=== PATIENT | female | born 1930 | race Caucasian/White ===

== ENCOUNTER 2017-03-21 09:23 | Inpatient (IN) | payer MEDICARE, BC ==
[~2017-03-21] VITALS: Ht 157.5 cm; Wt 69.5 kg
[~2017-03-21 09:23] MED LIST: BABY ASPIRIN81 MG PO; BUMEX2 MG PO; CALTRATE 600 M600 M1 PO; CORDARONE200 MG PO; COUMADIN7.5 MG PO; COZAAR50 MG PO; ELIQUIS2.5 MG PO; HYDROCHLOROTH12.5 M1 PO; KLOR-CON 1010 MEQ PO; KLOR-CON M2020 MEQ PO; KLOR-CON20 MEQ/PKT PO; LASIX40 MG PO; LEVAQUIN500 MG PO; LEVOTHROID75 MCG PO; LIPITOR40 MG PO; LOPRESSOR25 MG PO; MICRO-K10 MEQ PO; MOBIC7.5 MG PO; PROTONIX40 MG PO; RELAFEN500 MG PO; RESTORIL15 MG PO; SYNTHROID100 MCG PO; TIROSINT13 MCG; VITAMIN D2000 UNIT PO
[2017-03-21 10:06] LABS: BASOPHILS 0.2 % (0-2); HEMATOCRIT 38.6 % (36.0-48.0); IMMATURE GRANULOCYTES 0.4 % (0-5); LYMPHOCYTES 9.6 % (15-50); MCH 34.1 pg (26.0-34.0); MCHC 33.7 g/dL (31.0-37.0); MCV 101.3 fL (80.0-100.0); MEAN PLATELET VOLUME 9.4 fL (7.4-10.4); NEUTROPHILS 78.8 % (40-80); PLATELET COUNT 262 10x3/uL (130-400); RBC 3.81 10x6/uL (4.00-5.40); RDW 12.8 % (11.5-14.5); WBC 15.5 10x3/uL (4.8-10.8)
[2017-03-21 10:08] LABS: INR 0.98 (0.85-1.17); PROTIME 12.9 SECONDS (11.6-15.0)
--- NOTE | 2017-03-21 10:10 | NUR ---
RECIEVED PT TO THE FLOOR AT THIS TIME. ORIENTED TO ROOM AND FLOOR. ASSESSMENT DONE PER FLOWSHEET. 20G IV STARTED TO THE RIGHT FOREARM BY DAISY REYES RN AT THIS TIME. BED IN LOW POSITION AND CALL LIGHT WITHIN REACH. WILL CONTINUE TO MONITOR.
[2017-03-21 10:18] LABS: ALBUMIN 3.6 g/dL (3.4-5.0); ANION GAP 12.7 mmol/L (8-16); CREATININE - SERUM 1.2 mg/dL (0.6-1.3); POTASSIUM - SERUM 3.7 mmol/L (3.5-5.1); PROTEIN - SERUM 7.3 g/dL (6.4-8.2); T4 THYROXINE 16.6 ug/dL (4.7-13.3); THYROID STIMULATING HORMONE 1.76 uIU/mL (0.36-3.74)
[2017-03-21 13:30] VITALS: BP 125/69
[2017-03-21 14:29] VITALS: BP 125/69; BMI 27.8
[2017-03-21 17:05] VITALS: BP 93/63
[2017-03-21 17:34] LABS: HEMOGLOBIN 11.5 g/dL (12-16)
[2017-03-21 20:00] VITALS: BP 126/72
--- NOTE | 2017-03-21 20:10 | NUR ---
PATIENT RESTING IN BED AND DENIES NEEDS AT THIS TIME. BED IN LOWEST POSITION AND CALL LIGHT WITHIN REACH. ENCOURAGED THE PATIENT TO CALL IF SHE HAS NEEDS.
[2017-03-21 23:09] LABS: HEMATOCRIT 34.1 % (36.0-48.0); HEMOGLOBIN 11.1 g/dL (12-16)
[2017-03-22] VITALS (8 sets, daily range): BP systolic 96–165; BP diastolic 43–80; Ht 157.5 cm; Wt 69.5 kg
[2017-03-22 04:34] LABS: BASOPHILS 0.2 % (0-2); EOSINOPHILS 2.2 % (0-7); HEMATOCRIT 33.9 % (36.0-48.0); HEMOGLOBIN 11.5 g/dL (12-16); IMMATURE GRANULOCYTES 0.3 % (0-5); LYMPHOCYTES 11.5 % (15-50); MCH 34.2 pg (26.0-34.0); MCHC 33.9 g/dL (31.0-37.0); MCV 100.9 fL (80.0-100.0); MEAN PLATELET VOLUME 9.5 fL (7.4-10.4); MONOCYTES 13.7 % (2-11); NEUTROPHILS 72.1 % (40-80); RBC 3.36 10x6/uL (4.00-5.40); RDW 12.8 % (11.5-14.5)
[2017-03-22 04:37] LABS: PLATELET COUNT 203 10x3/uL (130-400); WBC 11.3 10x3/uL (4.8-10.8)
[2017-03-22 04:41] LABS: ANION GAP 11.3 mmol/L (8-16); CALCIUM 8.5 mg/dL (8.5-10.1); CARBON DIOXIDE 28.1 mmol/L (21.0-32.0); CREATININE - SERUM 0.9 mg/dL (0.6-1.3); POTASSIUM - SERUM 3.4 mmol/L (3.5-5.1)
--- NOTE | 2017-03-22 06:37 | HP ---
PATIENT: NIURKA SHEIKH MEDICAL RECORD: [id number] ACCOUNT: [id number] LOCATION:D.MS Lou8 : [birth year] ADMISSION DATE: 03/21/17 HISTORY AND PHYSICAL EXAMINATION DATE OF ADMISSION: 03/21/2017 CHIEF COMPLAINT: Spitting up blood. HISTORY OF PRESENT ILLNESS: The patient is an 86-year-old female, who states she awakened this morning at approximately 5:30, she has had coughing and she has had some blood. She reports smoking, no chills and no sweats. The patient presents for evaluation. PAST MEDICAL HISTORY: Significant that she has had history of having hypothyroidism. She has had coronary artery bypass grafting. She has had hyperlipidemia, gastroesophageal reflux and dependent edema. She had coronary artery bypass grafting in 2013. She had a cholecystectomy in 2009. She had a hysterectomy in 1980, history of arthritis. MEDICATIONS: Include amiodarone 200 mg half tablet daily, aspirin 81 mg once a day, atorvastatin 40 mg once a day, calcium 600 mg p.o. b.i.d., Lasix 40 mg p.o. q.a.m., levothyroxine 100 mcg once a day, losartan 50 mg once a day, nabumetone 500 mg 2 tablets once a day, Protonix 40 mg once a day, KCl 10 mEq p.o. daily and vitamin D3 of 1000 international units once a day. ALLERGIES: FLEXERIL. She is a , AB2. FAMILY HISTORY: Father of cirrhosis of liver. Mother of natural causes. SOCIAL HISTORY: Habits: The patient is a never smoker. She is educated to the 10th grade. She is . REVIEW OF SYSTEMS: CONSTITUTIONAL: She denies any headaches, seizure, or syncope. She denied change in visual or auditory acuity. PULMONARY: She denies any shortness of breath, cough, congestion, history of TB, asthma, or bronchitis. CARDIOVASCULAR: No chest pain, palpitation, PND, or orthopnea. GASTROINTESTINAL: No chronic nausea, vomiting, melena, or hematochezia. GENITOURINARY: No urgency, frequency, or dysuria. PHYSICAL EXAMINATION: GENERAL: She is a well-nourished and well-developed female, who is in no acute distress at present time. Alert and oriented times 3. VITAL SIGNS: Her blood pressure 146/86, her respirations 24, pulse 60, O2 sat is 92% on room air. HEENT: Head is normocephalic. No lesions. TMs clear. Eyes: Pupils are equal, round and reactive to light. Extraocular movements are intact. Nasal cavity, oral cavity and oropharynx clear. NECK: Supple. There is no adenopathy. HEART: Has a regular rate without any murmurs, gallops or rubs. HISTORY AND PHYSICAL [id number] AGUILAR,NIURKA LUNGS: Clear. ABDOMEN: Soft, bowel sounds positive. She does have an epigastric tenderness present. EXTREMITIES: Lower extremities have no edema. DIAGNOSTIC DATA: The patient had a chest x-ray showing no cardiomegaly, no active infiltrates. She has had a prior medial sternotomy. She does have some nonspecific ST wave changes with a pulse of 78 on EKG. LABORATORY DATA: The patient's white count is 12.9, hemoglobin 12.3, hematocrit was 39 and her platelet count was 292. ASSESSMENT: Acute hemoptysis, history of arteriosclerotic heart disease, hyperlipidemia, hypothyroidism and history of congestive failure. PLAN: The patient will be admitted. Serial H&H will be performed. She will be placed on Protonix 80 mg per hour IV. Gastroenterology consultation will be obtained for EGD. She will have her H&Hs checked q.6 hours and transfuse as needed. TRANSINT:[id number] Voice Confirmation ID: [id number] DOCUMENT ID: [id number] SANTA CHANDRA MD at 0637 CC: [id number] DICTATION DATE: 03/21/17 1019 SUPERVISOR ELECTROLYTIC TINNING: 03/21/17 1128 ADM IN [place] [id number] [place] [id number]
--- NOTE | 2017-03-22 07:30 | NUR ---
RECIEVED PT DURING WALKING ROUNDS, PT RESTING IN BED WITH COMPLAINTS OF A HEADACHE, RECIEVED ORDERS FROM DR AT THIS TIME. ASSESSMENT DONE PER FLOWSHEET, BED IN LOW POSITION AND CALL LIGHT WITHIN REACH. WILL CONTINUE TO MONITOR.
[2017-03-22 10:38] LABS: HEMATOCRIT 35.5 % (36.0-48.0); HEMOGLOBIN 11.8 g/dL (12-16)
--- NOTE | 2017-03-22 15:05 | NUR ---
PT COMPLAINS OF HEADACHE WELL CHEST AND BACK PAIN, ASKED PT TO DESCRIBE CHEST PAIN AND SHE STATED IT WAS ACHING. PHONE CALL PLACED TO TO 'S, RECIEVED ORDERS FOR DILAUDID 0.5MG IV AND A EKG. WAS INFORMED TO CALL FOR ANY OTHER PROBLEMS. WILL CONTINUE TO MONITOR.
--- NOTE | 2017-03-22 15:15 | NUR ---
PT O2 SAT AT THIS TIME 89% ON ROOM AIR, PT PLACED ON 2L NC, PT BREATHING SLIGHTLY LABORED, ELEVATED HOB AND INSTRUCTED PT TO TAKE DEEP BREATHS. CALL PLACED TO DR. SHEETS'S AND RECIEVED ORDERS FOR A STAT CHEST X-RAY. PT IN BED WITH FAMILY AT BEDSIDE. BED IN LOW POSITION AND CALL LIGHT WITHIN REACH. WILL CONTINUE TO MONITOR.
[2017-03-22 16:08] LABS: HEMATOCRIT 35.3 % (36.0-48.0); HEMOGLOBIN 11.5 g/dL (12-16)
--- NOTE | 2017-03-22 20:06 | NUR ---
IV SITED TO LEFT AC X2 STICKS USING ASEPTIC TECH. 20G
--- NOTE | 2017-03-22 21:30 | NUR ---
PT RECEIVED FROM FLOOR. WAS ADMITTED TUESDAY WITH CHEST PAIN. PT WAS SENT FOR EMERGENT CTA, AND IT WAS INITIALLY READ A DISSECTING AORTIC ANEURISM. PT WAS SENT TO CVICU, AND DR FU WAS CONSULTED FOR POSSIBLE NEED OF EMERGENT SURGICAL THERAPY. DR FU FOUND THAT THE ANEURISM WAS NOT DISSECTING, AND THAT THE PATIENT WOULD NOT BE A CANDIDATE FOR SURGERY GIVEN HER AGE AND PAST CARDIOVASCULAR HX. ORDERS RECEIVED FROM DR FU TO MAINTAIN SYSTOLIC PRESSURE BELOW 120. CLEVIPREX ORDER RECEIVED TOT TITRATE WHEN NEEDED. WILL MONITOR PRESSURES THROUGHOUT SHIFT. PT AND PT FAMILY DISCUSSED CODE STATUS WTH DR FU, AND ALL CAME TO AGREEMENT ON DNR STATUS. LIVING WILL ALSO PROVIDED BY FAMILY AND IS IN THE CHART. UPON ARRIVAL TO THE UNIT, PT WAS PLACED ON 5L NC. SAT 96% PT HAD FACIAL CYANOSIS AT THIS TIME AND IT WAS NOTED BY DR FU. ALL PULSES PRESENT AND PALPABLE AT THIS TIME. NO ADVENTITIOUS SOUNDS PRESENT UPON AUSCULTATION. WILL MONITOR PATIENT FOR CHANGES, AND ADJUST CARE ACCORDINGLY.
--- NOTE | 2017-03-22 21:30 | NUR ---
PT RECEIVED FROM FLOOR. WAS ADMITTED ON TUESDAY WITH CHEST PAIN. PT WAS SENT FOR EMERGENT CTA, AND IT WAS INITIALLY READ A DISSECTING AORTIC ANEURISM. PT WAS SENT TO CVICU, AND DR FU WAS CONSULTED FOR POSSIBLE NEED OF EMERGENT SURGICAL THERAPY. DR FU FOUND THAT THE ANEURISM WAS NOT DISSECTING, AND THAT THE PATIENT WOULD NOT BE A CANDIDATE FOR SURGERY GIVEN HER AGE AND PAST CARDIOVASCULAR HX. ORDERS RECEIVED FROM DR FU TO MAINTAIN SYSTOLIC PRESSURE BELOW 120. CLEVIPREX ORDER RECEIVED TO TITRATE WHEN NEEDED. WILL MONITOR PRESSURES THROUGHOUT SHIFT. PT AND PT FAMILY DISCUSSED CODE STATUS WITH DR FU AND ALL CAME TO AGREEMENT ON DNR STATUS. LIVING WILL ALSO PROVIDED BY FAMILY AND IS IN THE CHART. UPON ARRIVAL TO THE UNIT, PT WAS PLACED ON 2L NC. SAT 96%. PT HAD FACIAL CYNOSIS AT THIS TIME, AND IT WAS NOTED BY DR FU. ALL PULSES PRESENT AND PALPABLE. NO ADVENTITIOUS SOUNDS PRESENT UPON ASCULTATION. WILL MONITOR PATIENT FOR CHANGES AND ADJUST CARE ACCORDINGLY.
[2017-03-22 22:14] LABS: HEMATOCRIT 35.3 % (36.0-48.0); HEMOGLOBIN 11.8 g/dL (12-16)
[2017-03-22 22:26] LABS: INR 1.06 (0.85-1.17); PROTIME 13.7 SECONDS (11.6-15.0)
[2017-03-22 22:42] LABS: D-DIMER-QUANTITATIVE 4.33 ug/mLFEU (0.20-0.54)
--- NOTE | 2017-03-22 23:00 | NUR ---
REASSESSMENT COMPLETED. SEE FLOWSHEET FOR FULL DETAILS. NO OTHER CHANGES IN PATIENT STATUS AT THIS TIME. PT B/P HAS REMAINED WITHIN SET PARAMETERS WITHOUT NEED FOR MEDICINAL INTERVENTION. PT NO LONGER HAS FACIAL CYANOSIS VISIBLE AT THIS TIME. WILL CONTINUE TO MONITOR.
[2017-03-23] VITALS (28 sets, daily range): BP systolic 94–128; BP diastolic 34–69
--- NOTE | 2017-03-23 01:00 | NUR ---
PT B/P READS EVERY 15 MINS, ONE MEASUREMENT READ 126 SYSTOLIC AT THE END OF THE 2300 HOUR. CLEVIPREX PREPARED, AND SCANNED AND HUNG. B/P RETAKEN AND IT HAD GONE BACK WITHIN PARAMETERS. WILL CONTINUE TO MONITOR CLOSELEY AND MAKE ADJUSTMENTS.
--- NOTE | 2017-03-23 02:58 | NUR ---
PT HAD ONE SMALL URINATION OF 50 ML. B/P STILL WITHIN PARAMETERS. PT DISPLAYS NO SHORTNESS OF BREATH OR CYANOSIS AT THIS TIME. WILL CONTINUE TO MONITOR.
[2017-03-23 03:47] LABS: BASOPHILS 0.1 % (0-2); EOSINOPHILS 0 % (0-7); HEMATOCRIT 35.5 % (36.0-48.0); HEMOGLOBIN 11.6 g/dL (12-16); IMMATURE GRANULOCYTES 0.4 % (0-5); MCH 33.6 pg (26.0-34.0); MCHC 32.7 g/dL (31.0-37.0); MEAN PLATELET VOLUME 9.4 fL (7.4-10.4); MONOCYTES 10.9 % (2-11); NEUTROPHILS 79.6 % (40-80); PLATELET COUNT 173 10x3/uL (130-400); RBC 3.45 10x6/uL (4.00-5.40); RDW 13.1 % (11.5-14.5)
[2017-03-23 03:48] LABS: MCV 102.9 fL (80.0-100.0); WBC 18.9 10x3/uL (4.8-10.8)
[2017-03-23 03:57] LABS: APTT 26.6 SECONDS (22.8-39.4); INR 1.16 (0.85-1.17); PROTIME 14.7 SECONDS (11.6-15.0)
[2017-03-23 04:02] LABS: ANION GAP 12.8 mmol/L (8-16); BILIRUBIN - TOTAL 0.89 mg/dL (0.2-1.3); CALCIUM 8.4 mg/dL (8.5-10.1); CARBON DIOXIDE 24.8 mmol/L (21.0-32.0); CREATININE - SERUM 1.3 mg/dL (0.6-1.3); MAGNESIUM - SERUM 1.7 mg/dL (1.8-2.4); PHOSPHOROUS 4.9 mg/dL (2.5-4.9); POTASSIUM - SERUM 3.6 mmol/L (3.5-5.1); PROTEIN - SERUM 6.9 g/dL (6.4-8.2)
--- NOTE | 2017-03-23 05:12 | NUR ---
PT C/O DISCOMFORT FROM BEDREST AT THIS TIME. PT HAS BEEN REPOSITIONED REGULARLY, AND HEAT PROVIDED. SHE STATES HER DISCOMFORT WILL GET BETTER WITH MOVEMENT. PASSIVE ROM PROVIDED AT THIS TIME. NO OTHER CHANGES IN STATUS AT THIS TIME. WILL COTNINUE TO MONITOR
--- NOTE | 2017-03-23 07:15 | NUR ---
REPORT RECIEVED FROM PERSONNEL RECRUITER NURSE. PT RESTING IN BED QUIETLY. NO S/SX OF ACUTE DISTRESS NOTED. FULL ASSESSMENT COMPLETE PER FLOWSHEET. REFER FOR DETAILS. CALL LIGHT IN REACH. BED IN LOW POSITION. WILL CONT TO ASSESS FOR CHANGES.
--- NOTE | 2017-03-23 09:30 | NUR ---
MAGNUS RN CALLED REGARDING PT'S CURRENT NPO STATUS. SHE STATED THEY DID NOT HAVE ANYTHING ORDERED OR PLANNED FOR PT TO REMAIN NPO. WILL CALL PCP AND DR. COWAN.
--- NOTE | 2017-03-23 09:45 | NUR ---
DR. CHANDRA PAGED. AWAITING CALL BACK.
--- NOTE | 2017-03-23 10:30 | NUR ---
SPOKE WITH DR. CHANDRA NURSE. STATED IT WAS OKAY FOR PT TO EAT A REGULAR DIET AND GET UP OOB TO CHAIR, BUT NO EXTRANEOUS ACTIVITY.
--- NOTE | 2017-03-23 11:00 | NUR ---
REASSESSMENT COMPLETE PER FLOWSHEET. NO CHANGES NOTED.
--- NOTE | 2017-03-23 15:00 | NUR ---
FAMILY AT BEDSIDE. UPDATE PROVIDED.
--- NOTE | 2017-03-23 18:00 | NUR ---
ASSISTED TO BSC. LARGE LIQUID BM NOTED.
--- NOTE | 2017-03-23 19:40 | NUR ---
REPORT REC'D AND CARE ASSUMED, REC'D PT SITTING UP IN RECLINER ON O2 @ 3LITERS, DAUGHTER AT BS, PT AWAKE, ALERT, AND ORIENTED, RIGHT HAND PIV WITH PROTONIX INFUSING @ 10CC/HR AND LEFT A/C PIV WITH NS @ 30CC/HR, CLEVIPREX ON HOLD, CM-SR, PT REQUESTING TO GET BACK IN BED, ASSISTED X 1 TO BED, REPOSITIONED UP IN BED FOR COMFORT, SCDS APPLIED TO LOWER EXT'S, PPP, BED IN LOW POSITION, SR UP X 2, CALL LIGHT IN REACH.
--- NOTE | 2017-03-23 21:15 | NUR ---
FAMILY @ BS VISITING WITH PT, QUESTIONS ANSWERED, AND UPDATE PROVIDED
--- NOTE | 2017-03-23 21:30 | NUR ---
EVENING MEDS GIVEN WITH SIPS OF WATER, PT DENIES PAIN OR OTHER NEEDS, WILL MONITOR FOR CHANGES.
--- NOTE | 2017-03-23 23:00 | NUR ---
REASSESSSMENT COMPLETED, PT RESTING ON LEFT SIDE EYES CLOSED, RESP SHALLOW BUT UNLABORED, VSS, WILL CONT TO MONITOR FOR CHANGES.
[2017-03-24] VITALS (25 sets, daily range): BP systolic 87–123; BP diastolic 45–67
--- NOTE | 2017-03-24 00:07 | NUR ---
PT DOWN IN BED ATTEMPTING TO REMOVE EXCESS COVERS DUE TO BEING HOT, PT REPOSITIONED UP IN BED, BLANKETS REMOVED FOR COMFORT, BP 83/56, WILL MONITOR CLOSELY FOR CHANGES.
--- NOTE | 2017-03-24 02:25 | NUR ---
PT REQUESTING BEDPAN TO VOID, PLACED ON BEDPAN CALL LIGHT IN REACH.
--- NOTE | 2017-03-24 02:35 | NUR ---
BEDPAN REMOVED AND PT CLEANED, 250CC NORMA COLORED URINE NOTED, PT REPOSITIONED FOR COMFORT, NO FURTHER NEEDS VOICED.
--- NOTE | 2017-03-24 03:15 | NUR ---
LAB AT FOR AM BLOOD DRAW
[2017-03-24 04:30] LABS: ANION GAP 17.2 mmol/L (8-16); CALCIUM 8.3 mg/dL (8.5-10.1); CREATININE - SERUM 1.5 mg/dL (0.6-1.3)
[2017-03-24 04:37] LABS: BASOPHILS 0.1 % (0-2); EOSINOPHILS 0.9 % (0-7); HEMATOCRIT 31.3 % (36.0-48.0); HEMOGLOBIN 10.4 g/dL (12-16); IMMATURE GRANULOCYTES 0.3 % (0-5); LYMPHOCYTES 7.6 % (15-50); MCH 33.5 pg (26.0-34.0); MCHC 33.2 g/dL (31.0-37.0); MEAN PLATELET VOLUME 9.9 fL (7.4-10.4); MONOCYTES 13.3 % (2-11); NEUTROPHILS 77.8 % (40-80); PLATELET COUNT 133 10x3/uL (130-400); RDW 13.1 % (11.5-14.5); WBC 14.8 10x3/uL (4.8-10.8)
[2017-03-24 04:39] LABS: POTASSIUM - SERUM 4.2 mmol/L (3.5-5.1)
--- NOTE | 2017-03-24 07:15 | NUR ---
REPORT RECIEVED FROM BINDERY LIBRARY TECHNICAL ASSISTANT NURSE. PT RESTING QUEITLY. NO S/SX OF ACUTE DISTRESS NOTED AT THIS TIME. SHIFT ASSESSMENT COMPLETE PER FLOWSHEET. CALL LIGHT IN REACH. BED IN LOW POSITION. WILL CONT TO ASSESS FOR CHANGES.
--- NOTE | 2017-03-24 09:30 | NUR ---
PT REMAINS IN CHAIR POST BREAKFAST. RESTING IN RECLINER QUIETLY. NO S/SX OF ACUTE DISTRESS NOTED. DENIES NEEDS AT THIS TIME. WILL CONT TO ASSESS.
--- NOTE | 2017-03-24 10:29 | NUR ---
Nutrition Follow Up: Pt was asleep at the time of RD visit. Pt interview deferred at this time. Pt is on a regular diet. Wt gain since admit noted. +BM 03/23/17. Labs reviewed - Glucose elevated. Meds noted including D5NS @ 85 ml/hr, Lasix. Rec continue current diet. Will continue to provide selective menus and honor food preferences. RD following.
--- NOTE | 2017-03-24 10:50 | NUR ---
* Is the patient Alert and Oriented? Yes 0 * How many steps to enter\exit or inside your home? 3 0 * PCP Dr. Soriano 0 * Pharmacy [facility] 0 * Preadmission Environment Home Alone 0 * ADLs Independent 0 * List name and contact numbers for known caregivers / representatives who currently or will assist patient after discharge: Daughter - Ashvin Simmons [phone] Daughter in - Jaki Contreras [phone] 0 * Additional services required to return to the preadmission environment? No 0 * Can the patient safely return to the preadmission environment? Yes 0 * Has this patient been hospitalized within the prior 30 days at any hospital? No Patient Name: NIURKA CONTRERAS Admission Status: Elective Accout number: [id number] Admission Date: 03-21-2017 : 1928 Admission Diagnosis:HEMOPTYSIS Attending: ISSAC Current LOS: 3 Anticipated DC Date: 03-25-2017 Planned Disposition: Home Primary Insurance: MEDICARE A & B Discharge Planning Comments: CM met with patient to assess dc plans/needs. Patient states she lives alone & is independent with all ADL's. She states her she lives next door to her son. She denies using any DME or having home health services. At dc, she will return home. She states her family will assist with any needs. Anticipate DC next 1-2 days. CM will follow. Band Reamer Machine Operator: Norah Randall
--- NOTE | 2017-03-24 11:00 | NUR ---
NO CHANGES NOTED AT THIS TIME. VSS. WILL CONT TO ASSESS.
--- NOTE | 2017-03-24 13:00 | NUR ---
ASSISTED BACK TO RECLINER WITH MOD ASSIST. FRESH ICE WATER PLACED IN REACH. WILL CONT TO ASSESS.
--- NOTE | 2017-03-24 15:00 | NUR ---
DAUGHTER AT BEDSIDE. UPDATE PROVIDED.
--- NOTE | 2017-03-24 17:00 | NUR ---
DINNER PLACED ON BST. DENIES NEEDS AT THIS TIME. WILL CONT TO ASSESS.
--- NOTE | 2017-03-24 18:30 | NUR ---
ASSISTED BACK TO BED. CALL LIGHT PLACED IN REACH. SHADE PULLED OVER WINDOW PER REQUEST. WILL CONT TO ASSESS.
--- NOTE | 2017-03-24 19:30 | NUR ---
REC'D PT RESTING IN BED, AWAKE, ALERT, ORIENTED X 4, O2 @ 3LITERS VIA NC, RIGHT HAND PIV WITH PROTONIX @ 10 CC/HR, LEFT A/C PIV WITH BRUISING NOTED NS @ 30CC/HR, PT DENIES TENDERNESS AT SITE, MAEE, PPP, SCDS OFF AT THIS TIME FOR COMPLAINTS OF BEING HOT, PT DENIES FURTHER NEEDS, SR UP X 2 , BED IN LOW POSITION.
--- NOTE | 2017-03-24 20:30 | NUR ---
PT ASSISTED UP TO BATHROOM X 1 ASSIST, VOIDED APPROXIMATELY 200CC CONCENTRATED URINE, BACK TO BED, LEFT A/C PIV BLEEDING AT INSERTION SITE, NS STOPPED, LEFT A/C EDEMATOUS, PIV DC'D WITH CATH TIP INTACT, PROTONIX CONTINUES TO INFUSE VIA RIGHT HAND, PT REPOSITIONED UP IN BED, BLANKET PROVIDED FOR COMPLAINTS OF BEING COLD, PT DENIES FURTHER NEEDS.
--- NOTE | 2017-03-24 20:40 | NUR ---
EVENING MEDS GIVEN ORDERED.
--- NOTE | 2017-03-24 21:15 | NUR ---
DAUGHTER AT BS UPDATE GIVEN AND QUESTIONS ANSWERED.
--- NOTE | 2017-03-24 21:40 | NUR ---
PT COMPLAINS OF BACK PAIN MIDBACK FROM ARTHRITIS, DAUGHTER REMAINS AT BS, 0.5MG DILAUDID GIVEN SLOW IVP, BP STABLE, WILL CONT TO MONITOR FOR CHANGES.
--- NOTE | 2017-03-24 23:00 | NUR ---
REASSESSMENT COMPLETED, PT STATES "IS IT STORMING?" I WAS SLEEPING GOOD AND HEARD A NOISE, EXPLAINED TO PT IT WAS NOT STORMING AT THIS TIME, PT REQUESTING BEDPAN, BEDPAN PLACED UNDER PT.
--- NOTE | 2017-03-24 23:05 | NUR ---
PT REMOVED FROM BEDPAN AND PERICARE PROVIDED, PT VOIDED 150 CC CONCENTRATED URINE, REPOSITIONED UP IN BED FOR COMFORT, PT DENIES FURTHER NEEDS, SR UP X 2, CALL LIGHT IN REACH.
[2017-03-25] VITALS (14 sets, daily range): BP systolic 87–120; BP diastolic 43–76
--- NOTE | 2017-03-25 01:15 | NUR ---
REPORT GIVEN TO MARY ALICE SEN RN
--- NOTE | 2017-03-25 01:22 | NUR ---
REPORT RECIEVED PT APPEARS TO BE SLEEP. DENIES ANY NEEDS WILL CONTINUE TO MONITOR.
--- NOTE | 2017-03-25 02:34 | NUR ---
PT STATES SHE NEEDED TO GO TO THE BATHROOM. ASSISTED TO THE BED [place] VOIDED 75CC OF URINE. POSITIONED PT FOR COMFORT WILL CONTINUE TO MONITOR.
--- NOTE | 2017-03-25 04:16 | NUR ---
PT REQUESTED TO GET IN THE CHAIR. ASSISTED TO THE CHAIR WITH NO PROBLEMS. CALL LIGHT IN REACH.
--- NOTE | 2017-03-25 08:48 | OP ---
PATIENT NAME: NIURKA SHEIKH MEDICAL RECORD: [id number] :[birth year] LOCATION:[facility] D.CV02 ADMISSION DATE:03/21/17 SURGEON: BÁRBARA TANG DO DATE OF OPERATION: 03/22/2017 PROCEDURE: EGD. INDICATIONS: Possible GI bleed. SCOPE: Olympus video gastroscope. MEDICATIONS: Propofol 60 mg IV per anesthesia. ESTIMATED BLOOD LOSS: None. COMPLICATIONS: None. FINDINGS: Informed consent was given. The patient was made comfortable with the above medication. After reaching an adequate level of sedation by slow IV push, the patient was placed on her left side. The endoscope was then advanced under direct visualization through the mouth to the second portion of the duodenum. In the hypopharynx, there was some old bright red blood noted and streak of blood that appeared to be coming from the airway. The endoscope passed the hypopharynx and dominated the esophagus. The upper, middle, and lower thirds of the esophagus appeared normal as did the GE junction. The endoscope was advanced beyond the GE junction into the stomach and retroflexed to view the cardia, where a small sliding hiatal hernia was present. The entire stomach appeared normal without erosions, ulcerations, or other abnormalities. The endoscope was advanced beyond the pylorus into the duodenum where the bulb and second portion of the duodenum appeared normal. Scope was then withdrawn from the patient. The patient tolerated the procedure well and there were no complications. There were no sources of bleeding visualized on this examination within the digestive tract and there was no old blood noted within the digestive tract. The only bit of blood that was encountered was involving the airway. IMPRESSION: 1. Hiatal hernia, otherwise normal upper endoscopy. 2. Small amount of blood visualized in hypopharynx. PLAN AND RECOMMENDATIONS: 1. Return to floor for continued monitoring and further workup. 2. Consider pulmonology consultation and further imaging to evaluate the lungs and airway. 3. GI is available as needed for further evaluation. TRANSINT:[id number] Voice Confirmation ID: [id number] DOCUMENT ID: [id number] OPERATIVE REPORT [id number] NIURKA SHEIKH BÁRBARA TANG DO at 0848 CC: [id number] DICTATION DATE: 03/22/17 1650 FORENSIC PATHOLOGIST: 03/22/17 1706 ADM IN [facility] [address] [facility], [facility]
--- NOTE | 2017-03-25 09:41 | CN ---
PATIENT NAME:NIURKA CONTRERAS MEDICAL RECORD: [id number] : [birth year] LOCATION:[facility].CV02 ADMIT DATE: 03/21/17 ACCOUNT: [id number] CONSULTING PHYSICIAN: AFTAB CARTAGENA MD REFERRING PHYSICIAN: SANTA CHANDRA MD DATE OF CONSULTATION: 03/23/2017 DIAGNOSES: 1. Shortness of breath. 2. Chest pain. 3. Hemoptysis. 4. Aortic valve replacement. 5. Coronary artery disease. 6. Status post coronary bypass graft surgery in 2013. 7. Ascending aortic aneurysm. HISTORY OF PRESENT ILLNESS: Mrs. Contreras presents with shortness of breath and chest pain. She has a history of coronary artery disease. Her troponin is normal. Her EKG is with no acute ST-T changes. 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 PHYSICAL EXAMINATION: GENERAL APPEARANCE: Well-nourished, well-developed, appears stated age. Level of distress, comfortable. PSYCHIATRIC: Mental status, alert, normal affect. Orientation, oriented to time, place and person. EYES: Lids and conjunctiva, noninjected. No discharge, no pallor. ENT: Lips, teeth, gums, normal dentition. Oropharynx, no cyanosis, no pallor. NECK: Carotid arteries, bilateral normal upstroke, no bruits, no thrills. JUGULAR VEINS: No jugular venous pressure or distention. CERVICAL LYMPH NODES: Nontender, nonenlarged. THYROID: Not enlarged. Nontender. No nodules. LUNGS: Respiratory effort, unlabored. CHEST: Normal curvature. No thoracic deformity. No chest wall tenderness. Percussion, resonant. Auscultation, clear. No wheezes, no rales, no rhonchi. CARDIOVASCULAR: Precordial exam, nondisplaced. No heaves or pericardial thrills. Rate and rhythm, regular. Heart sounds, normal S1, normal S2. No S3, no gallop, no rub. Systolic murmur, not heard. Diastolic murmur, not heard. EXTREMITIES: No cyanosis, no edema. Peripheral pulses, full and equal in all extremities, except as noted. No bruits appreciated. ABDOMEN: Soft, nondistended. Normal aorta. No bruit. Nontender. No masses. Liver, nontender, no hepatomegaly. Spleen, nontender, no splenomegaly. MUSCULOSKELETAL: No joint tenderness. No joint swelling. No erythema. NEUROLOGICAL: Normal gait, normal strength, normal tone. SKIN: Warm and dry. OVERALL IMPRESSION: Ascending aneurysm that is markedly enlarged. Most likely her symptomatology is all from the ascending aneurysm. There is no reason to think she has an acute ischemic heart disease from this. Cardiac catheterization would be ill advised secondary to the aneurysm at this time, only medical management. Her heart rate and blood pressure are optimal on her current medications. No other cardiovascular workup or treatment is necessary. CONSULT REPORT [id number] NIURKA CONTRERAS TRANSINT:[id number] Voice Confirmation ID: [id number] DOCUMENT ID: [id number] AFTAB CARTAGENA MD at 0941 CC: [id number] DICTATION DATE: 03/23/17 1228 CARCASS SPLITTER: 03/23/17 1518 ADM IN [place] [id number] [place] [address]
--- NOTE | 2017-03-25 10:46 | NUR ---
0715-RECIEVED PER FLOW SHEET-UP IN CHAIR-DAUGHTER AT BEDSIDE-NOTED R HAND IV SITE EDEMATOUS-SITE D/C'D TIP INTACT-PEWTER FINISHER AT [facility]-ATTEMPT X4-NO SUCCESS 08-DR ORELLANA AT [facility]-INFORMED OF NO IV ACCESS-ORDERS RECIEVED AND 0900-PLACED ON ROOMAIR AT 92% O2SAT
--- NOTE | 2017-03-25 10:49 | NUR ---
CM RECEIVED REQUEST TO SPEAK WITH THE PATIENT AND FAMILY REGARDING DISCHARGE PLANNING. PATIENT HAD BEEN VISITED 03/24. CM REVISITED TO CLARIFY DISCHARGE PLAN AND PREFERENCE. CM SPOKE WITH THE PATIENT AND MULTIPLE FAMILY MEMBERS AT THE BEDSIDE. SHE REQUESTED I SPEAK WITH HER DAUGHTER, ZENON POON. THE FAMILY CALLED MRS POON AT [phone]. 2680- MET W/ MRS POON. SHE WANTS HER MOTHER TO COME TO HER HOME AT DISCHARGE. SHE EXPLAINED SHE HAD SPOKEN WITH DR FU AND DR ORELLANA THIS AM. CM EXPLAINED THAT WOULD BE FINE BUT IF THE PATIENT HAD ADDITIONAL NEEDS OR DID NOT PROGRESS WELL SHE COULD GO TO A SKILLED FACILITY WITHIN 30 DAYS OF DISCHARGE. EXPLAINED MEDICARE COVERAGE FOR SKILLED FACILITY. DTR VOICED NO ADDITIONAL CONCERNS AND NO QUESTIONS. THE DAUGHTER AND SON SHARE DECISION MAKING RESPONSIBILITIES. 1100 RECEIVED TELEPHONE CALL FROM PT' SON, ADAN SHEIKH. HE AGREES WITH THE PLAN FOR HOME. HE REQUEST [facility] AND [facility] FOR DME. HE FEELS THEY WILL NEED A BEDSIDE COMMODE AND WHEELCHAIR AT DISCHARGE. HE HAS SPOKE WITH BOTH PROVIDERS. CM WILL FOLLOW TO ASSIST WITH DISCHARGE PLANNING.
--- NOTE | 2017-03-25 11:01 | NUR ---
1030-DR COWAN PG'D
--- NOTE | 2017-03-25 18:56 | NUR ---
RECIEVED TO ROOM VIA BED FROM CVICU AWAKE AND ALERT ORINETD X 3
[2017-03-26 03:58] VITALS: BP 122/68
--- NOTE | 2017-03-26 07:00 | NUR ---
PT REC'D FROM [facility]SE[facility] OSMAN. SITTING UP IN CHAIR AT BEDSIDE. AAOX4. DAUGHTER AT BEDSIDE. RATING CURRENT PAIN IN LOWER BACK 04/17. WILL ADMINISTER PAIN MEDS AND REASSESS. REGULAR HEART RATE AND RHYTHM. BILAT CRACKLES NOTED TO LOWER LOBES. WEAK NON-PRODUCTIVE COUGH NOTED WELL. ABD ROUND, BOWEL SOUNDS ACTIVE X4 QUADS, ABD NOT PALPATED DUE TO AAA. +2 PEDAL PULSES BILAT. +2 EDEMA, REDNESS, AND WARMTH NOTED TO L ARM. PT STATES, "IT'S BEEN THERE EVER SINCE THEY TRIED TO START AN IV IN THAT ARM." NO IV ACCESS CURRENTLY. CALL LIGHT IN REACH, DENIES NEEDS. CPOC.
[2017-03-26 09:02] VITALS: BP 111/54
--- NOTE | 2017-03-26 09:30 | NUR ---
MORNING MEDS PASSED AT THIS TIME. LAYING IN BED ON L SIDE. AWAITING DOCTORS ARRIVAL. BED LOW, CALL LIGHT IN REACH, DENIES NEEDS. CPOC.
--- NOTE | 2017-03-26 11:58 | NUR ---
PRN TYLENOL ADMINISTERED PER PT COMPLAINTS OF 9/10 BACK PAIN. WILL REASSESS. ASSISTED PT TO BATHROOM. X1 ASSIST. BED LOW, CALL LIGHT IN REACH, DENIES NEEDS. CPOC.
[2017-03-26 12:44] VITALS: BP 102/64
[2017-03-26 15:36] VITALS: BP 134/68
--- NOTE | 2017-03-26 16:12 | NUR ---
SCHEDULED MEDS ADMINISTERED AT THIS TIME. RESTING IN BED WITH FAMILY AT BEDSIDE. REPOSITIONED UP IN BED. BED LOW, CALL LIGHT IN REACH, DENIES NEEDS. CPOC.
[2017-03-26 19:00] VITALS: BP 100/79
[2017-03-27] VITALS: BP 106/84
--- NOTE | 2017-03-27 01:00 | NUR ---
PT WOKE UP SHORT OF BREATH AND CLAMMY. O2 SAT IN THE 80'S. SAT IS NOW 93% ON 3L/NC. UPPER EXTREMITIES AND FACE EDEMATOUS. LUNG SOUNDS ARE CLEAR. BILAT ARMS APPEAR BLUISH. CALLED DR. COWAN. WILL CONTINUE WITH OXYGEN AND TRY HAVING PT LIE ON LEFT SIDE TO HELP WITH BREATHING PER DR. COWAN. DAUGHTER IN ROOM WITH PT. DAUGHTER SAYS PT IS DNR. THERE IS A COPY ON THE CHART. WILL CONTINUE TO MONITOR.
[2017-03-27 04:00] VITALS: BP 151/85
--- NOTE | 2017-03-27 07:56 | NUR ---
PATIENT ALERT IN BED WITH NURSE AID AT BEDSIDE. NO SIGNS OF DISTRESS NOTED. SIDE RAILS UP X2. BED IN LOW POSITION. CALL LIGHT IN REACH.
[2017-03-27 09:41] VITALS: BP 156/84
--- NOTE | 2017-03-27 12:11 | NUR ---
8547 LATE ENTRY DELFINO SPOKE WITH PRIMARY NURSE, JOEL, AND THE RESPIRATORY THERAPIST ABOUT PATIENT'S RESP STATUS. HER O2 SAT AT REST IS 90%. QUESTION O2 SAT W/ ACTIVITY. PATIENT RESPORTEDLY HAD A "BAD" NIGHT LAST NIGHT. REQUIRED NASAL O2 AT 2/L, CM AWAITED MD ROUNDS REGARDING POSSIBLE NEED FOR HOME O2. [address] ORELLANA ON HIS ROUNDS. HE HAD JUST VISITED W/ THE FAMILY AND THE PLAN IS FOR DISCHARGE TO HOME WITH HOSPICE. THE FAMILY HAS SELECTED [facility]. DELFINO SPOKE WITH THE FAMILY AT THE BEDSIDE. HOSPICE IS TO CALL [facility] AT [phone]. TC TO [facility] . RECEIVED CB FROM [facility], [facility] ATTENDANT NURSE. REFERRAL GIVEN. PACKET PREPARED FOR HOSPICE NURSE.
[2017-03-27 12:33] VITALS: BP 157/86
[2017-03-27 17:38] VITALS: BP 155/95
--- NOTE | 2017-03-27 18:37 | NUR ---
REPORT RECEIVED THAT [facility] HAS COMPLETED ALL NECESSARY ARRANGEMENTS FOR PATIENT TO DISCHARGE TO HOME. ALL REQUIRED EQUIPMENT HAS BEEN DELIVERED AND HOSPICE WILL ACCEPT PATIENT UPON ARRIVAL HOME.
--- NOTE | 2017-03-27 19:57 | NUR ---
DISCHARGE INSTRUCTIONS DISCUSSED WITH SON, WHO IS POA. NO QUESTIONS OR CONCERNS VOICED AT THIS TIME. NO IV ACCESS IN PT. [facility] ESC[facility]ED OUT BY [facility] EMT.
--- NOTE | 2017-03-27 20:58 | NUR ---
LATE ENTRY [facility] MET WITH PATIENT'S FAMILY AT THE BEDSIDE. LEGALS WERE SIGNED. ARRANGEMENTS MADE FOR DELIVERY OF DME, [facility] PROVIDER, TO DAUGHTER'S HOME. PATIENT BEING DISCHARGED TO [facility] VIA AMBULANCE. PCS FORM COMPLETED. ADDRESS AND CONTACT INFORMATION CONFIRMED W/ SON. AWAITING COMPLETION OF ARRANGEMENTS. PATIENT' SONADAN WAS AT THE BEDSIDE WITH OTHER FAMILY MEMBERS. [employer] PROVIDED TRANSPORTATION TO HOME THIS LATE PM.
== END 2017-03-27 19:58 | disposition home health service (06) | DRG 299 ==
LOC: D.CVICU 09:23 → D.MS 09:23 → D.SDCHOLD 09:23 → D.MS 09:40 → D.CVICU 03-22 21:27 → D.MS 03-25 18:50
PROVIDERS: Internal Medicine Gastroenterology; Internal Medicine Pulmonary Disease; ADMIT Family Medicine
PROC: 0DJ08ZZ Inspection of Upper Intestinal Tract, Via Natural or Artificial Opening Endoscopic (ICD-10-PCS; principal; 2017-03-22 11:30)
DX: I71.01 Dissection of thoracic aorta (principal); J18.9 Pneumonia, unspecified organism; I50.30 Unspecified diastolic (congestive) heart failure; E03.9 Hypothyroidism, unspecified; I25.10 Atherosclerotic heart disease of native coronary artery without angina pectoris; E78.5 Hyperlipidemia, unspecified; K21.9 Gastro-esophageal reflux disease without esophagitis; I11.0 Hypertensive heart disease with heart failure; Z95.2 Presence of prosthetic heart valve; Z66 Do not resuscitate; I48.91 Unspecified atrial fibrillation; Z79.01 Long term (current) use of anticoagulants; E55.9 Vitamin D deficiency, unspecified; K44.9 Diaphragmatic hernia without obstruction or gangrene; Z95.1 Presence of aortocoronary bypass graft; I08.3 Combined rheumatic disorders of mitral, aortic and tricuspid valves